=== PATIENT | female | born 1945 | race Caucasian/White ===

== ENCOUNTER 2023-09-16 01:31 | Emergency (ER) | payer MEDICARE, SELFPAY ==
[2023-09-16] VITALS (9 sets, daily range): BP systolic 163–186; BP diastolic 78–88; PULSE 82–94; RESP 13–18; TEMP 36.6; O2SAT 92–99; BMI 26.7
[2023-09-16] MEDS: CYCLOBENZAPRINE 10 MG TABLET PO (02:12)
[2023-09-16] MEDS: LIDOCAINE 5% PATCH 1 EACH TOP (02:12)
[2023-09-16] MEDS: DEXAMETHASONE 10 MG/ML VIAL IV (02:21)
[2023-09-16] MEDS: KETOROLAC 30 MG/ML VIAL 15 MG IV (02:22)
[2023-09-16] MEDS: ACETAMINOPHEN IV 1,000 MG/100 ML VIAL 400 MG IV (02:22)
--- NOTE | 2023-09-16 02:26 | ED_ITS ---
HPI - Extremity Injury (Lower) General Chief Complaint: Extremity Injury, Lower Stated Complaint: spinal stenosis - in horrible pain Time Seen by Provider: 09/16/23 01:34 Source: patient Mode of arrival: Ambulatory History of Present Illness HPI Narrative: 78-year-old female presents from home by private vehicle for lumbar back pain that extends into her right groin. Patient states that she has had gradually worsening back pain for several months now. She had a lumbar spine MRI obtained earlier this week and she was told yesterday by her primary care physician that she had ?stenosis everywhere?. She states that she has been referred to Orthopedics next week, she is currently taking Flexeril and [place] for pain, however she is unable to find any relief at home and she is here today for help with her pain. She denies bowel or bladder incontinence, denies saddle anesthesia. Reports numbness across the front of her right thigh, which has been present for quite some time. Related Data Previous Rx's Medication Instructions Recorded dexamethasone 4 mg tablet 4 mg PO BID #10 tabs 09/16/23 hydrocodone 5 mg-acetaminophen 325 1 tab PO Q8H PRN pain #12 tabs 09/16/23 mg tablet Allergies Allergy/AdvReac Type Severity Reaction Status Date / Time No Known Drug Allergies Allergy Verified 09/16/23 02:04 Review of Systems Review of Systems Narrative: Negative except as noted above Patient History Social History Smoking Status: Never smoker Smoking Status: Never smoker Substance Use Type: does not use Exam Initial Vital Signs Initial Vital Signs: Vital Signs Temperature 97.8 F 09/16/23 01:42 Pulse Rate 94 H 09/16/23 01:42 Respiratory Rate 16 09/16/23 01:42 Blood Pressure 186/88 H 09/16/23 01:42 Pulse Oximetry 98 09/16/23 01:42 Oxygen Delivery Method Room Air 09/16/23 01:42 Const: Awake, alert, no acute distress, fatigued Cardiac: regular rate, regular rhythm RESP: unlabored, clear bilaterally, no wheezing MSK: Atraumatic, full range of motion, pulses equal Skin: Warm, Dry, intact, no rashes Neuro: AO x3, CN II-XII grossly intact, moves all extremities Psych: affect normal, mood normal, not suicidal, not homicidal Course Orders Ordered: Discontinued Medications Cyclobenzaprine HCl (Cyclobenzaprine 10 Mg Tablet) 10 mg PO NOW ONE Stop: 09/16/23 02:03 Last Admin: 09/16/23 02:12 Dose: 10 mg Documented By: TANA Dexamethasone (Dexamethasone 10 Mg/Ml Vial) 10 mg IV NOW ONE Stop: 09/16/23 02:02 Last Admin: 09/16/23 02:21 Dose: 10 mg Documented By: TANA Diazepam (Diazepam 10 Mg/2 Ml Syringe) 5 mg IV NOW ONE Stop: 09/16/23 03:10 Last Admin: 09/16/23 03:15 Dose: 5 mg Documented By: TANA Acetaminophen (Ofirmev) 1,000 mg in 100 mls @ 400 mls/hr IV NOW ONE Stop: 09/16/23 02:15 Last Infusion: 09/16/23 03:03 Dose: Infused Documented By: Admin: 09/16/23 02:22 Dose: 400 mls/hr Documented By: TANA Lidocaine HCl 5 ml/ Sodium (Chloride) 55 mls @ 330 mls/hr IV NOW ONE Stop: 09/16/23 03:43 Last Infusion: 09/16/23 04:17 Dose: Infused Documented By: Admin: 09/16/23 04:06 Dose: 330 mls/hr Documented By: TANA Ketorolac Tromethamine (Ketorolac 30 Mg/Ml Vial) 15 mg IV NOW ONE Stop: 09/16/23 02:02 Last Admin: 09/16/23 02:22 Dose: 15 mg Documented By: TANA Lidocaine (Lidocaine 5% Patch) 1 each TOP NOW ONE Stop: 09/16/23 02:02 Last Admin: 09/16/23 02:12 Dose: 1 each Documented By: TANA Morphine Sulfate (Morphine 4 Mg/Ml Inj) 4 mg IV NOW ONE Stop: 09/16/23 03:56 Last Admin: 09/16/23 04:01 Dose: 4 mg Documented By: TANA Vital Signs Vital signs: Vital Signs - 8 hr 09/16/23 01:42 09/16/23 01:46 09/16/23 02:00 Temperature 97.8 F Pulse Rate 94 H 90 Pulse Rate [Bilateral Dorsalis Pedis] 90 Respiratory Rate 16 Blood Pressure 186/88 H 171/78 H Pulse Oximetry 98 99 Oxygen Delivery Method Room Air 09/16/23 03:05 09/16/23 03:30 09/16/23 03:35 Temperature Pulse Rate 83 82 84 Pulse Rate [Bilateral Dorsalis Pedis] Respiratory Rate 18 14 Blood Pressure 176/86 H 164/81 H Pulse Oximetry 98 92 94 Oxygen Delivery Method Room Air 09/16/23 04:00 09/16/23 04:02 09/16/23 04:02 Temperature Pulse Rate 90 86 Pulse Rate [Bilateral Dorsalis Pedis] Respiratory Rate 13 Blood Pressure 184/87 H Pulse Oximetry 97 98 Oxygen Delivery Method Room Air Room Air 09/16/23 04:30 09/16/23 04:30 Temperature Pulse Rate 86 Pulse Rate [Bilateral Dorsalis Pedis] Respiratory Rate 14 Blood Pressure 163/80 H Pulse Oximetry 94 Oxygen Delivery Method Room Air MDM - Extremity Injury (Lower) MDM Narrative Medical decision making narrative: Nontoxic appearing patient presenting for assistance with pain control with her lumbar back. She has recent lumbar spine MRI, however we are unable to assess this report. She states that she has an appointment with [facility] on 09/20. Patient states that her symptoms are all the same as they have been, the pain is just causing her to not be able to sleep. No indication for repeat imaging at this time. Pain still present without improvement after IV Tylenol, Toradol, Decadron, p.o. Flexeril, lidocaine patch. We will add Valium. Slight decrease in pain with Valium but still having symptoms. We will add morphine and IV lidocaine. Patient reports marked improvement in pain after administration of morphine and lidocaine. Resting comfortably. Patient states she has 3 pills of her [place] left and requests additional pills to help get her to her orthopedic appointment. A very small refill was sent to patient's pharmacy of choice as well as additional steroids. Patient states she has muscle relaxers at home that she can continue to take. ED return precautions discussed at bedside. Patient expressed understanding of the plan and is in agreement at this time. All questions answered at the time of discharge. Discharge Plan Departure Patient Disposition: Home Clinical Impression: Acute lumbar back pain Instructions: DI for Low Back Pain Prescriptions: New dexamethasone 4 mg tablet 4 mg PO BID Qty: 10 0RF hydrocodone-acetaminophen 5-325 mg tablet 1 tab PO Q8H PRN (Reason: pain) Qty: 12 0RF Stand Alone Forms: Patient Portal/API
[2023-09-16] MEDS: diazePAM 10 MG/2 ML SYRINGE 5 MG IV (03:15)
[2023-09-16] MEDS: MORPHINE 4 MG/ML INJ IV (04:01)
[2023-09-16] MEDS: LIDOCAINE 2% (PF) 5 ML in SODIUM CHLORIDE 0.9% 50 ML 330 ML IV (04:06)
== END 2023-09-16 04:50 | disposition home or self-care (01) ==
PROVIDERS: Emergency Provider Emergency Medicine
DX: M54.50 Low back pain, unspecified (principal)
CPT/HCPCS: 96365; 96375; 99283; 99284; J0136; J1100; J1885; J2270; J3360

== ENCOUNTER 2023-09-18 23:55 | Emergency (ER) | payer MEDICARE, SELFPAY ==
[2023-09-19 00:15] VITALS: BP 182/80; PULSE 87; RESP 16; TEMP 36.6; O2SAT 99; BMI 26.5
[2023-09-19 01:29] VITALS: BP 197/91; PULSE 89; O2SAT 99
[2023-09-19 01:30] VITALS: BP 203/88; PULSE 86; RESP 20; O2SAT 99
[2023-09-19 02:00] VITALS: BP 178/84; PULSE 80; O2SAT 97
--- NOTE | 2023-09-19 02:20 | ED_ITS ---
HPI - Extremity Problem General Chief complaint: Extremity Problem,Nontraumatic Stated complaint: rt leg pain Time Seen by Provider: 09/19/23 02:11 Source: patient Mode of arrival: Family Vehicle History of Present Illness HPI Narrative: Patient 78-year-old female with known lumbar stenosis. She had an MRI last week which she reports ?stenosis everywhere. ? She was seen evaluated here on September 16. She required multiple doses of many different medications in order to get her pain under control. She is back tonight with ongoing pain down her right leg. She is scheduled to see Orthopedics tomorrow. She reports that [place] isn't helping with pain she has been taking Flexeril also not helping. She denies any bladder incontinence or saddle anesthesia. Does report a new pain behind her right knee. She has not had any fever. Related Data Home Medications Medication Instructions Recorded Confirmed albuterol sulfate 90 mcg/actuation 2 puff inhalation Q4-6H PRN 09/19/23 09/19/23 aerosol inhaler Shortness Of Breath Or Wheezing cyclobenzaprine 5 mg tablet 5 mg PO ONCE PM PRN Muscle Pain 09/19/23 09/19/23 hydrochlorothiazide 25 mg tablet 12.5 mg PO DAILY blood pressure 09/19/23 09/19/23 hydrocodone 5 mg-acetaminophen 325 0.5 - 1 tab PO Q4H PRN severe pain 09/19/23 09/19/23 mg tablet methocarbamol 500 mg tablet 500 mg PO PRN PRN Muscle Pain 09/19/23 09/19/23 Previous Rx's Medication Instructions Recorded dexamethasone 4 mg tablet 4 mg PO BID #10 tabs 09/16/23 hydrocodone 5 mg-acetaminophen 325 1 tab PO Q8H PRN pain #12 tabs 09/16/23 mg tablet gabapentin 300 mg capsule 300 mg PO BEDTIME #30 caps 09/19/23 Allergies Allergy/AdvReac Type Severity Reaction Status Date / Time No Known Drug Allergies Allergy Verified 09/19/23 00:29 Patient History Social History Smoking Status: Never smoker Smoking Status: Never smoker Substance Use Type: does not use Exam Initial Vital Signs Initial Vital Signs: Vital Signs Temperature 97.9 F 09/19/23 00:15 Pulse Rate 87 09/19/23 00:15 Respiratory Rate 16 09/19/23 00:15 Blood Pressure 182/80 H 09/19/23 00:15 Pulse Oximetry 99 09/19/23 00:15 Oxygen Delivery Method Room Air 09/19/23 00:15 GENERAL: Alert 78-year-old female appears in pain CARDIOVASCULAR: peripheral pulses in tact, cap refill <2 sec RESPIRATORY: No respiratory distress, speaks in full sentences without difficulty EXTREMITIES: Normal range of motion, no clubbing or edema. Neurovascularly intact NEUROLOGICAL: Able to ambulate in the ED. Cranial nerves II through XII grossly intact. Normal gait and speech. SKIN: Warm, dry, no petechiae, no rashes or lesions. Course Orders Ordered: Discontinued Medications Gabapentin (Gabapentin 300 Mg Capsule) 300 mg PO NOW ONE Stop: 09/19/23 02:34 Last Admin: 09/19/23 02:40 Dose: 300 mg Documented By: MARCELLE Morphine Sulfate (Morphine 4 Mg/Ml Inj) 4 mg IM NOW ONE Stop: 09/19/23 02:34 Last Admin: 09/19/23 02:40 Dose: 4 mg Documented By: MARCELLE Vital Signs Vital signs: Vital Signs - 8 hr 09/19/23 00:15 09/19/23 01:29 09/19/23 01:29 Temperature 97.9 F Pulse Rate 87 89 Respiratory Rate 16 Blood Pressure 182/80 H 197/91 H Pulse Oximetry 99 99 Oxygen Delivery Method Room Air Room Air 09/19/23 01:30 09/19/23 01:30 09/19/23 02:00 Temperature Pulse Rate 86 80 Respiratory Rate 20 Blood Pressure 203/88 H Pulse Oximetry 99 97 Oxygen Delivery Method Room Air 09/19/23 02:00 09/19/23 02:30 09/19/23 02:30 Temperature Pulse Rate 88 Respiratory Rate Blood Pressure 178/84 H 190/86 H Pulse Oximetry 98 Oxygen Delivery Method Room Air 09/19/23 02:53 09/19/23 02:53 Temperature Pulse Rate 82 Respiratory Rate 16 Blood Pressure 176/76 H Pulse Oximetry 97 Oxygen Delivery Method Room Air MDM - Extremity (Nontraumatic) MDM Narrative Medical decision making narrative: Patient is 70-year-old female has known stenosis with severe neuropathy down her right. Currently has an outpatient she is taking dexamethasone hydrocodone and Flexeril, then if it seems to be helping she is unable to sleep tonight. Today in the ED she is given gabapentin shot was morphine. He is appointment with orthopedics in a couple of days. No concern for cauda equina at this time she recently had MRI they do not have a copy of it she is able to report the results to eat. Discharge Plan Departure Patient Disposition: Home Clinical Impression: Neuropathy Instructions: Peripheral Neuropathy Activity Restrictions/Additional Instructions: *You have been diagnosed with neuropathy *What to do: I am sorry that you have so much pain I hope that this gets better for you. You may be referred to Dr. Kirk for spinal injections it may also help you *Continue to take medications as directed Gabapentin 300 mg at night, this can be adjusted but please talk with the provider before doing so *Follow up with your primary care provider in 2-3 days or call [phone] *Return to ER if you should have increasing leg weakness numbness loss of urine or any new, worsening or concerning symptoms Prescriptions: New gabapentin 300 mg capsule 300 mg PO BEDTIME Qty: 30 0RF No Action dexamethasone 4 mg tablet 4 mg PO BID Qty: 10 0RF hydrocodone-acetaminophen 5-325 mg tablet 1 tab PO Q8H PRN (Reason: pain) Qty: 12 0RF albuterol sulfate 90 mcg/actuation HFA aerosol inhaler 2 puff INHALATION Q4-6H PRN (Reason: Shortness Of Breath Or Wheezing) cyclobenzaprine 5 mg tablet 5 mg PO ONCE PM PRN (Reason: Muscle Pain) hydrochlorothiazide 25 mg tablet 12.5 mg PO DAILY hydrocodone-acetaminophen 5-325 mg tablet 0.5 - 1 tab PO Q4H PRN (Reason: severe pain) methocarbamol 500 mg tablet 500 mg PO PRN PRN (Reason: Muscle Pain) Stand Alone Forms: Patient Portal/API
[2023-09-19 02:30] VITALS: BP 190/86; PULSE 88; O2SAT 98
[2023-09-19] MEDS: MORPHINE 4 MG/ML INJ IM (02:40)
[2023-09-19] MEDS: GABAPENTIN 300 MG CAPSULE PO (02:40)
[2023-09-19 02:53] VITALS: BP 176/76; PULSE 82; RESP 16; O2SAT 97
== END 2023-09-19 03:00 | disposition home or self-care (01) ==
PROVIDERS: Emergency Provider Emergency Medicine
DX: G57.91 Unspecified mononeuropathy of right lower limb (principal)
CPT/HCPCS: 96372; 99283; J2270